=== PATIENT | male | born 1945 | race Caucasian/White ===

== ENCOUNTER 2022-04-13 08:29 | Day surgery (SDC) | payer OTHER, SELFPAY ==
[2022-04-12 09:25] VITALS: BMI 18.8
--- NOTE | 2022-04-12 10:48 | P.CONAN_ITS ---
Documented by User: Lorena Segura NP 04/12/22 10:48 HPI - Anesthesia Eval Consult details Narrative: 77yo M for Colonoscopy [facility] Past Medical History Medical History Depression HTN (hypertension) Hyperlipidemia Osteoporosis PTSD (post-traumatic stress disorder) Surgical History Surgical History (Updated 04/12/22 @ 09:27 by Jaycob Spring, RN) History of colonoscopy History of hernia surgery History of knee surgery Social History Social History Patient Tobacco Use Status: Former Tobacco user Quit Date: 2006 Tobacco use type: Cigarette Smoked in Last 30 Days: No Use of substances other than those prescribed or required for medical reasons: No Are you DNR?: No Advance Directives: No Advance Directives Information Provided: Yes Meds Allergies Allergy/AdvReac Type Severity Reaction Status Date / Time No Known Allergies Allergy Verified 04/13/22 08:38 Home Medications Medication Instructions Recorded Confirmed Last Taken Type citalopram 10 mg tablet 10 mg PO DAILY 04/12/22 04/13/22 Unknown History lisinopril 5 mg tablet 5 mg PO DAILY 04/12/22 04/13/22 04/13/22 07:30 History multivitamin 1 tab PO DAILY 04/12/22 04/13/22 Unknown History Exam Exam Date and Time: April 12, 2022 1048 Height,Weight and Vital Signs: Height 5 ft 8.5 in Weight 57.153 kg Assessment and Plan Assessment Anesthesia Assessment: Chart Reviewed Documented by User: Anand Khan MD 04/13/22 09:54 [facility] Past Medical History Medical History Depression HTN (hypertension) Hyperlipidemia Osteoporosis PTSD (post-traumatic stress disorder) Family History Family history of problems with anesthesia: No Surgical History Surgical History (Updated 04/12/22 @ 09:27 by Jaycob Spring RN) History of colonoscopy History of hernia surgery History of knee surgery History of Problems with Anesthesia: No Social History Social History Patient Tobacco Use Status: Former Tobacco user Quit Date: 2006 Tobacco use type: Cigarette Smoked in Last 30 Days: No Use of substances other than those prescribed or required for medical reasons: No Are you DNR?: No Advance Directives: No Advance Directives Information Provided: Yes Meds Allergies Allergy/AdvReac Type Severity Reaction Status Date / Time No Known Allergies Allergy Verified 04/13/22 08:38 Home Medications Medication Instructions Recorded Confirmed Last Taken Type citalopram 10 mg tablet 10 mg PO DAILY 04/12/22 04/13/22 Unknown History lisinopril 5 mg tablet 5 mg PO DAILY 04/12/22 04/13/22 04/13/22 07:30 History multivitamin 1 tab PO DAILY 04/12/22 04/13/22 Unknown History Exam Airway Mallampati Class: II Neck ROM: Full Denture: Upper and Lower Heart: rrr Lungs: clear Assessment and Plan Final Anesthetic Review Family History of Problems with Anesthesia: No History of Problems with Anesthesia: No ASA Class: II Final Preanesthetic Review: No Changes in Pt Med Stat, Meds/Allgs Chart Reviewed, Consent Obtained/Reviewed and Anes Risks/Benef Reviewed Patient Risk: Intermediate Procedure Risk: Low Anesthetic Plan Anesthetic Plan: MAC: Disposition: Standard PACU
[2022-04-13 08:47] VITALS: BMI 18.8
[2022-04-13 08:58] VITALS: BP 131/74; PULSE 98; RESP 16; TEMP 36.3; O2SAT 98
[2022-04-13] MEDS: Lactated Ringers 1,000 ML 100 ML IVCONT (09:16)
[2022-04-13 10:41] VITALS: BP 93/55; PULSE 78; RESP 18; TEMP 36.3; O2SAT 97
--- NOTE | 2022-04-13 10:45 | P.BOP_ITS ---
Brief Operative Note Date of Service: 04/13/22 Pre-op diagnosis: Screening Post-op diagnosis: other (Diverticulosis) Procedure: Colonoscopy to the cecum and TI Surgeon: Eriberto Rm Anesthesia: MAC Was an [employer] used for this Procedure?: No Estimated blood loss (mL): 0 Pathology: none sent Condition: stable Disposition: PACU
[2022-04-13 10:55] VITALS: BP 106/68; PULSE 72; RESP 18; O2SAT 98
[2022-04-13 11:34] VITALS: BP 124/72; PULSE 72; RESP 16; TEMP 36.6; O2SAT 98
--- NOTE | 2022-04-14 00:04 | OP_ITS ---
SURGEON: Eriberto Rm MD INDICATIONS: The patient presents for evaluation of colorectal cancer screening. Full consent has been obtained from him for this, including risks of bleeding and perforation. PREOPERATIVE DIAGNOSIS: Colorectal cancer screening. POSTOPERATIVE DIAGNOSIS: PROCEDURE PERFORMED: Colonoscopy to the cecum and terminal ileum. ESTIMATED BLOOD LOSS: COMPLICATIONS: ANESTHESIA: Monitored anesthesia care. ASSISTANTS: SPECIMENS: POSTOPERATIVE DIAGNOSES: Colorectal cancer screening, sigmoid diverticulosis, and internal hemorrhoids. DESCRIPTION OF PROCEDURE: The patient was placed in the left lateral decubitus position. The digital rectal exam revealed no abnormalities. The Olympus video pediatric colonoscope was entered into the rectum and advanced easily to the cecum. Once in the cecum, I did identify a normal-appearing cecal pouch with appendiceal orifice and a normal-appearing ileocecal valve. The terminal ileum was cannulated and appeared normal. The scope was withdrawn back in the colon. The entire cecum and ileocecal valve appeared normal. The scope was slowly withdrawn assessing all mucosal surfaces carefully. Preparation was excellent. I did not visualize any sign of polyps, colitis, nor angiodysplasia. There was a mild amount of sigmoid diverticulosis. In the rectum, scope was retroflexed visualizing internal hemorrhoids, but no other pathology. The rectal mucosa appeared normal. The scope was straightened and withdrawn from the patient, he tolerated the procedure well and was returned to the recovery area in stable condition. IMPRESSION: 1. Diverticulosis. 2. Internal hemorrhoids. PLAN: Given today's negative exam and his age, I do not think, he would need any further screening colonoscopies. He will otherwise see me on a p.r.n. basis. This has been discussed with his . MD HUSSEIN Fernandez/DARIN / [id number]
== END 2022-04-13 12:20 | disposition home or self-care (01) ==
PROVIDERS: PCP Physician Assistant; Visit Provider Internal Medicine
PROC: 0DJD8ZZ Inspection of Lower Intestinal Tract, Via Natural or Artificial Opening Endoscopic (ICD-10-PCS; CPT 45378; principal; 2022-04-13 09:40)
DX: Z12.11 Encounter for screening for malignant neoplasm of colon (principal); K57.30 Diverticulosis of large intestine without perforation or abscess without bleeding; K64.8 Other hemorrhoids; I10 Essential (primary) hypertension; E78.5 Hyperlipidemia, unspecified; M81.0 Age-related osteoporosis without current pathological fracture; F32.A Depression, unspecified; F43.10 Post-traumatic stress disorder, unspecified; Z79.899 Other long term (current) drug therapy; Z87.891 Personal history of nicotine dependence
CPT/HCPCS: 45378